=== PATIENT | male | born 1960 | race Caucasian/White ===

== ENCOUNTER 2019-09-07 08:10 | Outpatient (CLI) | payer BC, SELFPAY ==
--- NOTE | 2019-09-07 13:28 | PDOC.EEG ---
Neurology EEG EEG: [facility] Department of Neurology EEG REPORT Date of Recordin09/07/19 Interpreting Physician: Dr. Yady Hanna PCP/Referring Provider: Dr. Brandon Reason for study: Mr. Colindres is a 59 year-old man with a 1 year history of spells with loss of consciousness concerning for seizures. Current Medications: Home Medications Medication Instructions Recorded Confirmed Type amlodipine 5 mg tablet 5 mg PO DAILY 08/07/19 History citalopram 20 mg tablet 20 mg PO DAILY 08/07/19 History dextroamphetamine-amphetamine ER 25 mg PO DAILY 08/07/19 History 25 mg 24hr capsule,extend release lisinopril 40 mg tablet 40 mg PO DAILY 08/07/19 History oxygen-air delivery systems #1 08/07/19 History simvastatin 20 mg tablet 20 mg PO DAILY 08/07/19 History levetiracetam 500 mg tablet 500 mg PO BID #180 tab 08/30/19 08/30/19 Rx METHODS: A 21 channel digitized electroencephalogram was performed in the [facility]. The 10/20 international system of electrode placement was used and bipolar and referential electrode montages were recorded. In addition to EEG the patient was monitored for EKG and lateral/vertical eye movements. Activation procedures of photic stimulation and hyperventilation were performed if applicable. Video was used during activation procedures and during events where applicable. The duration of the recording was 30 minutes. DESCRIPTION OF EEG: The patient was noted to be awake and drowsy during the recording. During maximal wakefulness a 10-Hz posterior background rhythm was present which was well-modulated, symmetrical, reactive to eye opening, and of moderate voltage. With eye opening the background activity changed to a low voltage mixture of alpha, beta, and occasional theta range frequencies. Faster frequencies were present in the bilateral anterior head regions. There was a normal anterior-posterior voltage gradient. During drowsiness, there was attenuation of the posterior dominant background rhythm and vertex waves. No stage II sleep was recorded. There were rare, moderate-amplitude,left temporal sharp waves with a single, pronounced, left temporal (T3) sharp wave (28:07) of unclear significance. Activating Procedures: Photic stimulation was performed which produced a symmetrical posterior driving response at various flash frequencies. Hyperventilation was performed with moderate effort and produced no physiological slowing of the background. EKG: EKG revealed normal sinus rhythm. INTERPRETATION: This EEG is borderline abnormal due to a single T3 sharp-wave of unclear significance. PRIOR EEG: none CLINICAL CORRELATION: The finding above was not clearly epileptic, but certainly suspicious. No sleep was recorded during the study which reduces the sensitivity of the exam. If seizure remains a part of the differential, consider a repeat sleep-deprived EEG or overnight ambulatory EEG. Clinical correlation is advised. Yady Hanna MD
--- NOTE | 2019-10-09 08:43 | W.CARDEVENT ---
Date of service: 10/09/19 Time of Service: 08:43 Cardiac Event Recorder Cardiac Event Note: This is a 30-day event monitor ordered for indication of syncope and collapse. ?The patient was in normal sinus rhythm for the majority of the recording. ?There were 3 automatically detected events which were associated with PVCs. ?There was one manually detected event was associated with sinus rhythm and PVCs. ?Total burden of PVCs was 8%. ?There are no episodes of atrial fibrillation, no pauses greater than 3 seconds and no evidence of high degree heart block.
== END 2019-09-07 08:30 ==
PROVIDERS: PCP Family Medicine; Visit Provider Psychiatry & Neurology Neurology
DX: R94.01 Abnormal electroencephalogram [EEG] (principal); R55 Syncope and collapse; R68.89 Other general symptoms and signs
CPT/HCPCS: 93270; 95816

== ENCOUNTER → 2022-06-01 11:01 | Outpatient (BNVA) | payer BC, OTHER, SELFPAY | PROVIDERS: PCP Family Medicine; Referring Provider Family Medicine; Visit Provider Psychiatry & Neurology Neurology | DX: I10 Essential (primary) hypertension (principal); G40.109 Localization-related (focal) (partial) symptomatic epilepsy and epileptic syndromes with simple partial seizures, not intractable, without status epilepticus | CPT/HCPCS: 99213 ==

== ENCOUNTER → 2024-02-29 15:06 | Outpatient (BNVA) | payer MEDICARE, OTHER, SELFPAY | PROVIDERS: PCP Family Medicine; Referring Provider Family Medicine; Visit Provider Nurse Practitioner Gerontology | DX: N40.1 Benign prostatic hyperplasia with lower urinary tract symptoms (principal); N13.8 Other obstructive and reflux uropathy; N28.1 Cyst of kidney, acquired | CPT/HCPCS: 51798; 99213 ==

== ENCOUNTER → 2024-07-26 12:44 | Outpatient (BNVA) | payer MEDICARE, OTHER, SELFPAY | PROVIDERS: PCP Family Medicine; Visit Provider Psychiatry & Neurology Neurology | DX: G40.109 Localization-related (focal) (partial) symptomatic epilepsy and epileptic syndromes with simple partial seizures, not intractable, without status epilepticus (principal) | CPT/HCPCS: 99213 ==

== ENCOUNTER → 2025-03-06 14:56 | Outpatient (BNVA) | payer MEDICARE, OTHER, SELFPAY | PROVIDERS: PCP Family Medicine; Referring Provider Family Medicine; Visit Provider Nurse Practitioner Gerontology | DX: N40.1 Benign prostatic hyperplasia with lower urinary tract symptoms (principal); N13.8 Other obstructive and reflux uropathy; N28.1 Cyst of kidney, acquired; N52.9 Male erectile dysfunction, unspecified; R39.9 Unspecified symptoms and signs involving the genitourinary system | CPT/HCPCS: 99213; 51798 ==